=== PATIENT | male | born 1965 | race Caucasian/White ===

== ENCOUNTER 2022-12-04 16:32 | Emergency (ER) | payer BC | END 2022-12-04 17:51 | disposition home or self-care (01) | LOC: JD.ED 16:32 | DX: S09.93XA Unspecified injury of face, initial encounter (principal); S09.91XA Unspecified injury of ear, initial encounter; W33.01XA Accidental discharge of shotgun, initial encounter | CPT/HCPCS: 70150; 70150-26; 99283; 99284 ==